=== PATIENT | female | born 2000 | race Caucasian/White ===

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

== ENCOUNTER 2019-01-28 18:58 | Emergency (ER) | payer SELFPAY ==
--- NOTE | 2019-01-28 20:19 | ER Document Report ---
ED Medical Screen (RME) - General Chief Complaint: Vaginal Bleeding Stated Complaint: VAGINAL BLEEDING/ Time Seen by Provider: 01/28/19 20:11 Mode of Arrival: Ambulatory Information source: Patient Notes: 18-year-old female presented to ED for complaint of lower abdominal pain that started yesterday. She states her menstrual cycle started yesterday it was not due to the 13th of 14th and she never has appeared to start early there usually late. She states she filled a super tampon in less than an hour and then this when she is having a little more than an hour and is not full yet. She states she is very concerned because she is never had any bleeding like this. She states only medical history she has is they had to remove her gallbladder and when she was born there was no opening from her urethra to the outside and they had to make an opening. She states that he smokes a pack a day drinks on the weekends and lives with her family. She states no other medical history. I have greeted and performed a rapid initial assessment of this patient. A comprehensive ED assessment and evaluation of the patient, analysis of test results and completion of medical decision making process will be conducted by an additional ED providers. Dictation of this chart was performed using voice recognition software; therefore, there may be some unintended grammatical errors. TRAVEL OUTSIDE OF THE [place] IN LAST 30 DAYS: No - Related Data Allergies/Adverse Reactions: No Known Allergies Allergy (Verified 01/28/19 18:59) Past Medical History Renal/ Medical History: Denies: Hx Peritoneal Dialysis Psychiatric Medical History: Reports: Hx Attention Deficit Hyperactivity Disorder, Hx Bipolar Disorder Past Surgical History: Reports: Hx Gynecologic Surgery - surgery to "open her up", Hx Urinary Tract Surgery - urethra stricture - Immunizations Immunizations up to date: Yes Hx Diphtheria, Pertussis, Tetanus Vaccination: Yes Physical Exam - Vital signs Vitals: Temp Pulse Resp BP Pulse Ox 99.1 F 92 H 18 105/64 100 01/28/19 19:10 01/28/19 19:10 01/28/19 19:10 01/28/19 19:10 01/28/19 19:10 Course - Vital Signs Vital signs: Temp Pulse Resp BP Pulse Ox 99.1 F 92 H 18 105/64 100 01/28/19 19:10 01/28/19 19:10 01/28/19 19:10 01/28/19 19:10 01/28/19 19:10
[2019-01-28 20:42] LABS: ABSOLUTE EOSINOPHILS # (AUTO) 0.1 10^3/uL (0.0-0.6); ABSOLUTE LYMPHOCYTES (AUTO) 1.6 10^3/uL (0.5-4.7); ABSOLUTE MONOCYTES (AUTO) 0.5 10^3/uL (0.1-1.4); ABSOLUTE NEUT (AUTO) 4.5 10^3/uL (1.7-8.2); BASOPHILS % (AUTO) 0.5 % (0-2); HEMATOCRIT 42.3 % (36.0-47.0); HEMOGLOBIN 14.2 g/dL (12.0-15.5); LYMPHOCYTES % (AUTO) 23.9 % (13-45); MEAN CORPUSCULAR HEMOGLOBIN 29.9 pg (27.0-33.4); MEAN CORPUSCULAR HGB CONC 33.7 g/dL (32.0-36.0); MEAN CORPUSCULAR VOLUME 89 fl (80-97); MONOCYTES % (AUTO) 7.1 % (3-13); PLATELET COUNT 185 10^3/uL (150-450); RED BLOOD COUNT 4.77 10^6/uL (3.72-5.28); RED CELL DISTRIBUTION WIDTH 13.3 % (11.5-14.0); SEGMENTED NEUTROPHILS % (AUTO) 67.5 % (42-78); TOTAL CELLS COUNTED % (AUTO) 100 %; WHITE BLOOD COUNT 6.7 10^3/uL (4.0-10.5)
[2019-01-28 20:53] LABS: APPEARANCE,URINE CLOUDY; BILIRUBIN,URINE NEGATIVE (NEGATIVE); COLOR,URINE YELLOW; GLUCOSE, URINE NEGATIVE (NEGATIVE); KETONES,URINE TRACE mg/dL (NEGATIVE); LEUKOCYTE ESTERASE,URINE TRACE (NEGATIVE); NITRITE,URINE NEGATIVE (NEGATIVE); PROTEIN,URINE 30 mg/dL (NEGATIVE); URINE SPECIFIC GRAVITY 1.031
[2019-01-28 21:00] LABS: ALBUMIN 4.5 g/dL (3.7-5.6); ALKALINE PHOSPHATASE 85 U/L (50-135); ANION GAP 5 (5-19); ASPARTATE AMINO TRANSFERASE 22 U/L (5-30); BILIRUBIN,DIRECT 0.2 mg/dL (0.0-0.4); BILIRUBIN,TOTAL 0.4 mg/dL (0.2-1.3); BLOOD UREA NITROGEN 13 mg/dL (7-20); CALCIUM 9.3 mg/dL (8.4-10.2); CARBON DIOXIDE 29 mmol/L (22-30); CHLORIDE 108 mmol/L (98-107); GLUCOSE 89 mg/dL (75-110); POTASSIUM 4.2 mmol/L (3.6-5.0)
[2019-01-28 21:09] LABS: ADD MANUAL MICROSCOPIC YES
[2019-01-28 21:10] LABS: BACTERIA,URINE TRACE /HPF
[2019-01-28] MEDS ORDERED: NORMAL SALINE 1000 ML 1,000 ML IV ONE (23:41)
[2019-01-28] MEDS ORDERED: ONDANSETRON HCL INJ/PF 4 MG/2 ML SDV IV ONE (23:41)
[2019-01-28] MEDS ORDERED: KETOROLAC TROMETHAMINE INJ/PF 30 MG/1 ML SDV IV ONE (23:41)
--- NOTE | 2019-01-28 23:44 | ER Document Report ---
ED GI/ - General Chief Complaint: Vaginal Bleeding Stated Complaint: VAGINAL BLEEDING/ Time Seen by Provider: 01/28/19 20:11 Primary Care Provider: [facility] [Provider Group] - Follow up as needed Mode of Arrival: Ambulatory Notes: Patient is a 18-year-old female that comes emergency department for chief complaint of lower abdominal and pelvic pain that is very sharp, on both lower sides, and she has very heavy vaginal bleeding. She states she is soaking through pads very quickly (reported filled a super tampon in less than an hour), she states she is concerned she is either or bleeding or has a very out of the ordinary menstrual cycle. She denies fever/chills. She reports nausea but she denies vomiting. She states her last menstrual cycles 1 month ago. She is sexually active. She denies vaginal discharge or dysuria. She reports bilateral lower flank pain intermittently. She has a had a cholecystectomy, as a baby they made her urethra because she did not have an opening, she smokes, no other medical history reported. TRAVEL OUTSIDE OF THE [place] IN LAST 30 DAYS: No - Related Data Allergies/Adverse Reactions: No Known Allergies Allergy (Verified 01/28/19 18:59) Past Medical History - General Information source: Patient - Social History Smoking Status: Never Smoker Drug Abuse: None Lives with: Family Family History: Reviewed & Not Pertinent Renal/ Medical History: Denies: Hx Peritoneal Dialysis Psychiatric Medical History: Reports: Hx Attention Deficit Hyperactivity Disorder, Hx Bipolar Disorder Past Surgical History: Reports: Hx Gynecologic Surgery - surgery to "open her up", Hx Urinary Tract Surgery - urethra stricture - Immunizations Immunizations up to date: Yes Hx Diphtheria, Pertussis, Tetanus Vaccination: Yes Review of Systems - Review of Systems Constitutional: No symptoms reported EENT: No symptoms reported Cardiovascular: No symptoms reported Respiratory: No symptoms reported Gastrointestinal: See HPI Genitourinary: See HPI Female Genitourinary: See HPI Musculoskeletal: No symptoms reported Skin: No symptoms reported Hematologic/Lymphatic: No symptoms reported Neurological/Psychological: No symptoms reported Physical Exam - Vital signs Vitals: Temp Pulse Resp BP Pulse Ox 99.1 F 92 H 18 105/64 100 01/28/19 19:10 01/28/19 19:10 01/28/19 19:10 01/28/19 19:10 08/08/19 19:10 - Notes Notes: GENERAL: Alert, interacts well. No acute distress. HEAD: Normocephalic, atraumatic. EYES: Pupils equal, round, and reactive to light. Extraocular movements intact. ENT: Oral mucosa moist, tongue midline. Oropharynx unremarkable. Airway patent. LUNGS: Clear to auscultation bilaterally, no wheezes, rales, or rhonchi. No respiratory distress. HEART: Regular rate and rhythm. No murmur ABDOMEN: There is some tenderness on both sides of the lower abdominal/pelvic areas. No guarding. No rebound tenderness. No rigidity. GENITOURINARY: There is scant amount of vaginal bleeding, no heavy bleeding noted, no discharge, no cervical motion tenderness, no lesions, no concerning findings. Exam performed with Vanda BEAUCHAMP at bedside. EXTREMITIES: Moves all 4 extremities spontaneously. No edema, normal radial and dorsalis pedis pulses bilaterally. No cyanosis. BACK: no cervical, thoracic, lumbar midline tenderness. No saddle anesthesia, normal distal neurovascular exam. Moves all extremities in full range of motion. NEUROLOGICAL: Alert and oriented x3. Normal speech. Cranial nerves II through XII grossly intact. PSYCH: Normal affect, normal mood. SKIN: Warm, dry, normal turgor. No rashes or lesions noted. Course - Re-evaluation Re-evalutation: Urine shows elevated specific gravity, otherwise unremarkable. CBC unremarkable without anemia, I did discuss this with patient in detail on her request. Ch emistry unremarkable, test negative. Pelvic examination without concerning findings, wet mount and gonorrhea/B are negative. Ultrasound without concerning finding. I do not have an exact cause of patient's worst pain and worse bleeding than usual. Most likely hormonal. Discussed with patient. She is much better after Toradol, provided with this at home, discussed GENERATOR TECHNICIAN follow-up and return precautions. Patient states understanding and agreement. - Vital Signs Vital signs: Temp Pulse Resp BP Pulse Ox 98.9 F 90 17 110/71 99 01/29/19 02:25 01/29/19 02:25 01/29/19 02:25 01/29/19 02:25 01/29/19 02:25 - Laboratory Result Diagrams: 01/28/19 20:32 01/28/19 20:32 Laboratory results interpreted by me: 01/28/19 01/28/19 20:32 20:32 Chloride 108 H Urine Protein 30 H Urine Ketones TRACE H Urine Urobilinogen 2.0 H Ur Leukocyte Esterase TRACE H Discharge - Discharge Clinical Impression: Dysfunctional uterine bleeding, Pelvic pain, Dehydration Condition: Stable Disposition: HOME, SELF-CARE Additional Instructions: Your ultrasound, laboratory work-up, and evaluation are reassuring. You have been treated for dehydration. Take the Toradol if needed for pain/cramping. Follow-up with GENERATOR TECHNICIAN for additional evaluation and management. See listed referral. Your hemoglobin is 14.2 (this is in the normal range, you are not anemic at this time). Return for any concerning symptoms including very heavy bleeding dizziness or passing out, severe worsening pain, fever/chills, vomiting, or any other concerning symptoms. Prescriptions: Ketorolac Tromethamine [Toradol 10 mg Tablet] 10 mg PO Q8HP PRN #24 tablet PRN Reason: Referrals: [facility] [Provider Group] - Follow up as needed
--- NOTE | 2019-01-29 01:05 | RADIOLOGY REPORT (SQ) ---
CLINICAL HISTORY: sharp pelvic pain with bleeding, nausea COMPARISON: None. TECHNIQUE: US PELVIS TRANSVAGINAL on 01/28/2019 11:42 PM CDT FINDINGS: Uterus measures 6.4 cm. Endometrium measures 4 mm. Right ovary is not seen. Left ovary measures 3.7 x 1.9 x 1.8 cm with patent flow. IMPRESSION: Unremarkable study. Right ovary not visualized.
[2019-01-29 01:06] LABS: T.VAGINALIS (WET MOUNT) NO TRICHOMONAS SEEN; WBCS (WET MOUNT) FEW WBCS SEEN; YEAST (WET MOUNT) NO YEAST SEEN
[2019-01-29 01:07] LABS: RBCS (WET MOUNT) 4+ RBCS SEEN
[2019-01-29 02:33] LABS: CHLAM PCR NOT DETECTED (NOT DETECT)
[2019-01-29 02:39] VITALS: BP 110/71
== END 2019-01-29 02:25 | disposition home or self-care (01) ==
LOC: ER 18:58
DX: N93.8 Other specified abnormal uterine and vaginal bleeding (principal); E86.0 Dehydration; R10.2 Pelvic and perineal pain; R10.30 Lower abdominal pain, unspecified; F17.200 Nicotine dependence, unspecified, uncomplicated
CPT/HCPCS: 99284; 96361; 96374; 96375; 36415; 87086; 87210; 84702; 85025; 80053; 81001; 87491; 87591; 76830; 93976; J1885; J2405; J7030

== ENCOUNTER 2019-03-27 14:10 | Emergency (ER) | payer SELFPAY ==
[2019-03-27 14:15] VITALS: BP 142/80
--- NOTE | 2019-03-27 14:33 | ER Document Report ---
ED Medical Screen (RME) - General Chief Complaint: Foreign Body in Vagina Stated Complaint: POSSIBLE PIECE TAMPON STUCK IN VAGINA Time Seen by Provider: 03/27/19 14:28 Mode of Arrival: Ambulatory Information source: Patient Notes: 18-year-old female presents to ED for complaint of part of her tampon being still in her vagina. She states she pulled the string on the tampon and part of the tampon stayed in her vagina. She states that every time her. Is over she goes to the [facility] and is frequently diagnosed with bacterial vaginosis. She states she is only used one time but she does not douche frequently. Patient is alert oriented respirations regular and unlabored speaking in full sentences walks with even steady gait. She states she does smoke a pack a day drinks weekly does not drug I have greeted and performed a rapid initial assessment of this patient. A comprehensive ED assessment and evaluation of the patient, analysis of test results and completion of medical decision making process will be conducted by an additional ED providers. TRAVEL OUTSIDE OF THE [place] IN LAST 30 DAYS: No - Related Data Allergies/Adverse Reactions: No Known Allergies Allergy (Verified 01/28/19 18:59) Past Medical History Renal/ Medical History: Denies: Hx Peritoneal Dialysis Psychiatric Medical History: Reports: Hx Attention Deficit Hyperactivity Disorder, Hx Bipolar Disorder Past Surgical History: Reports: Hx Cholecystectomy, Hx Gynecologic Surgery - surgery to "open her up", Hx Urinary Tract Surgery - urethra stricture - Immunizations Immunizations up to date: Yes Hx Diphtheria, Pertussis, Tetanus Vaccination: Yes Physical Exam - Vital signs Vitals: Temp Pulse Resp BP Pulse Ox 98.6 F 92 H 20 142/80 H 98 03/27/19 14:13 03/27/19 14:13 03/27/19 14:13 03/27/19 14:13 03/27/19 14:13 Course - Vital Signs Vital signs: Temp Pulse Resp BP Pulse Ox 98.6 F 92 H 20 142/80 H 98 03/27/19 14:13 03/27/19 14:13 03/27/19 14:13 03/27/19 14:13 03/27/19 14:13
--- NOTE | 2019-03-27 14:56 | ER Document Report ---
HPI - HPI Time Seen by Provider: 03/27/19 14:28 Pain Level: Denies Notes: Patient is an otherwise healthy 18-year-old female presenting to the emergency department was concerned that she has a tampon stuck inside of her vagina. She states that when she went to pull her tampon out the string broke. She states she obtained 2 large pieces of cotton but is unsure if there may be more in there. Patient reports the tampon was first inserted last night. She denies any other symptoms. - REPRODUCTIVE LMP: 03-27-19 Reproductive: DENIES: : Past Medical History - General Information source: Patient - Social History Smoking Status: Never Smoker Frequency of alcohol use: None Drug Abuse: None Family History: Reviewed & Not Pertinent Patient has suicidal ideation: No Patient has homicidal ideation: No Renal/ Medical History: Denies: Hx Peritoneal Dialysis Psychiatric Medical History: Reports: Hx Attention Deficit Hyperactivity Disorder, Hx Bipolar Disorder Past Surgical History: Reports: Hx Cholecystectomy, Hx Gynecologic Surgery - surgery to "open her up", Hx Urinary Tract Surgery - urethra stricture - Immunizations Immunizations up to date: Yes Hx Diphtheria, Pertussis, Tetanus Vaccination: Yes Vertical Provider Document - CONSTITUTIONAL Notes: PHYSICAL EXAMINATION: GENERAL: Well-appearing, well-nourished and in no acute distress. HEAD: Atraumatic, normocephalic. EYES: Pupils equal round extraocular movements intact, conjunctiva are normal. ENT: Nares patent NECK: Normal range of motion LUNGS: No respiratory distress Musculoskeletal: Normal range of motion Female : Normal external genitalia, no evidence of retained foreign body on speculum exam. NEUROLOGICAL: Normal speech, normal gait. PSYCH: Normal mood, normal affect. SKIN: Warm, Dry, normal turgor, no rashes or lesions noted. - INFECTION CONTROL TRAVEL OUTSIDE OF THE [place] IN LAST 30 DAYS: No Course - Re-evaluation Re-evalutation: No retained foreign body noted on vaginal exam. Patient will be discharged home in stable condition. Discussed ED return precautions. - Vital Signs Vital signs: Temp Pulse Resp BP Pulse Ox 98.6 F 92 H 20 142/80 H 98 03/27/19 14:13 03/27/19 14:13 03/27/19 14:13 03/27/19 14:13 03/27/19 14:13 Discharge - Discharge Clinical Impression: Concern for retained foreign body in vag Condition: Stable Disposition: HOME, SELF-CARE Additional Instructions: Fortunately no retained tampon was found during our examination today. You may want to try taking a probiotic or eating some yogurt around the time of your. Since you have stated you get recurrent BV after your period. Follow-up with your primary care provider with any new or worsening concerns. Return to the emergency department as needed.
== END 2019-03-27 15:04 | disposition home or self-care (01) ==
LOC: ER 14:10
DX: Z03.89 Encounter for observation for other suspected diseases and conditions ruled out (principal)
CPT/HCPCS: 99283

== ENCOUNTER 2019-04-12 17:18 | Emergency (ER) | payer SELFPAY ==
[2019-04-12 17:37] VITALS: BP 137/77
--- NOTE | 2019-04-12 17:40 | ER Document Report ---
ED Medical Screen (RME) - General Chief Complaint: Flank Pain Stated Complaint: FLANK PAIN Time Seen by Provider: 04/12/19 17:37 Mode of Arrival: Ambulatory Information source: Patient Notes: 18-year-old female with presents to ED for complaint of low back pain. This started today. She states she had burning frequency and pressure with urination for 3 days. She denies any nausea vomiting last menstrual cycle was March 25, 2019. She has had UTIs in the past but not recently. She states she has had unprotected sex. She states she does have some pelvic pain also. Patient is alert oriented respirations regular and unlabored speaking in full sentences. I have greeted and performed a rapid initial assessment of this patient. A comprehensive ED assessment and evaluation of the patient, analysis of test results and completion of medical decision making process will be conducted by an additional ED providers. TRAVEL OUTSIDE OF THE [place] IN LAST 30 DAYS: No - Related Data Allergies/Adverse Reactions: No Known Allergies Allergy (Verified 01/28/19 18:59) Past Medical History Renal/ Medical History: Denies: Hx Peritoneal Dialysis Psychiatric Medical History: Reports: Hx Attention Deficit Hyperactivity Disorder, Hx Bipolar Disorder Past Surgical History: Reports: Hx Cholecystectomy, Hx Gynecologic Surgery - surgery to "open her up", Hx Urinary Tract Surgery - urethra stricture - Immunizations Immunizations up to date: Yes Hx Diphtheria, Pertussis, Tetanus Vaccination: Yes Physical Exam - Vital signs Vitals: Temp Pulse Resp BP Pulse Ox 98.5 F 98 H 18 137/77 H 97 04/12/19 17:35 04/12/19 17:35 04/12/19 17:35 04/12/19 17:35 04/12/19 17:35 Course - Vital Signs Vital signs: Temp Pulse Resp BP Pulse Ox 98.5 F 98 H 18 137/77 H 97 04/12/19 17:35 04/12/19 17:35 04/12/19 17:35 04/12/19 17:35 04/12/19 17:35
[2019-04-12] MEDS ORDERED: ACETAMINOPHEN 325 MG TABLET PO ONE (17:41)
[2019-04-12 18:04] LABS: ABSOLUTE EOSINOPHILS # (AUTO) 0.1 10^3/uL (0.0-0.6); ABSOLUTE LYMPHOCYTES (AUTO) 1.5 10^3/uL (0.5-4.7); ABSOLUTE MONOCYTES (AUTO) 0.8 10^3/uL (0.1-1.4); ABSOLUTE NEUT (AUTO) 8.6 10^3/uL (1.7-8.2); BASOPHILS % (AUTO) 0.2 % (0-2); EOSINOPHILS % (AUTO) 0.7 % (0-6); HEMATOCRIT 43.8 % (36.0-47.0); HEMOGLOBIN 14.6 g/dL (12.0-15.5); LYMPHOCYTES % (AUTO) 13.5 % (13-45); MEAN CORPUSCULAR HEMOGLOBIN 29.3 pg (27.0-33.4); MEAN CORPUSCULAR HGB CONC 33.5 g/dL (32.0-36.0); MEAN CORPUSCULAR VOLUME 88 fl (80-97); MONOCYTES % (AUTO) 7.3 % (3-13); PLATELET COUNT 182 10^3/uL (150-450); RED CELL DISTRIBUTION WIDTH 13.2 % (11.5-14.0); SEGMENTED NEUTROPHILS % (AUTO) 78.3 % (42-78); TOTAL CELLS COUNTED % (AUTO) 100 %
[2019-04-12 18:23] LABS: ALBUMIN 4.2 g/dL (3.7-5.6); ALKALINE PHOSPHATASE 79 U/L (50-135); ANION GAP 9 (5-19); ASPARTATE AMINO TRANSFERASE 19 U/L (5-30); BILIRUBIN,DIRECT 0.1 mg/dL (0.0-0.4); BILIRUBIN,TOTAL 0.6 mg/dL (0.2-1.3); BLOOD UREA NITROGEN 14 mg/dL (7-20); CALCIUM 9.4 mg/dL (8.4-10.2); CARBON DIOXIDE 27 mmol/L (22-30); CHLORIDE 107 mmol/L (98-107); GLUCOSE 92 mg/dL (75-110); POTASSIUM 4.5 mmol/L (3.6-5.0); TOTAL PROTEIN 7.1 g/dL (6.3-8.2)
[2019-04-12 18:58] LABS: APPEARANCE,URINE TURBID; BILIRUBIN,URINE NEGATIVE (NEGATIVE); COLOR,URINE YELLOW; GLUCOSE, URINE NEGATIVE (NEGATIVE); KETONES,URINE NEGATIVE (NEGATIVE); PROTEIN,URINE 100 mg/dL (NEGATIVE); URINE SPECIFIC GRAVITY 1.018; UROBILINOGEN,URINE NEGATIVE mg/dL (<2.0)
[2019-04-12] MEDS ORDERED: AZITHROMYCIN 250 MG TABLET PO ONE (19:04)
[2019-04-12] MEDS ORDERED: CEFTRIAXONE INJ 250 MG VIAL IM ONE (19:04)
[2019-04-12] MEDS ORDERED: LIDOCAINE 1% INJ-PF (10 MG/ML) 30 ML SDV INJ ONE (19:04)
--- NOTE | 2019-04-12 19:10 | ER Document Report ---
ED General - General Chief Complaint: Flank Pain Stated Complaint: FLANK PAIN Time Seen by Provider: 04/12/19 17:37 Mode of Arrival: Ambulatory TRAVEL OUTSIDE OF THE [place] IN LAST 30 DAYS: No - HPI Notes: Patient is a 18-year-old female no significant past medical history aside from cholecystectomy and previous chlamydial infection who presents complaining of urinary burning, urgency, frequency, suprapubic pressure, vaginal odor/discharge that began over the past week. Patient states that she is able to eat and drink without difficulty. She is having normal bowel movements. Denies drug allergies. Patient states that she does have some lower back soreness that started yesterday without injury. Pain does not radiate. No other concerns or complaints. Denies any headache, fever, neck pain, URI, sore throat, chest pain, palpitations, syncope, cough, shortness of breath, wheeze, dyspnea, nausea/vomiting/diarrhea, loss of control of bowel or bladder, numbness/tinglin g, saddle anesthesia, muscle paralysis/weakness, or rash. - Related Data Allergies/Adverse Reactions: No Known Allergies Allergy (Verified 01/28/19 18:59) Home Medications: folic acid Past Medical History - General Information source: Patient - Social History Smoking Status: Current Every Day Smoker Frequency of alcohol use: Social Family History: Reviewed & Not Pertinent Patient has suicidal ideation: No Patient has homicidal ideation: No Renal/ Medical History: Denies: Hx Peritoneal Dialysis Psychiatric Medical History: Reports: Hx Attention Deficit Hyperactivity Disorder, Hx Bipolar Disorder Past Surgical History: Reports: Hx Cholecystectomy, Hx Gynecologic Surgery - surgery to "open her up", Hx Urinary Tract Surgery - urethra stricture - Immunizations Immunizations up to date: Yes Hx Diphtheria, Pertussis, Tetanus Vaccination: Yes Review of Systems - Review of Systems -: Yes All other systems reviewed and negative Physical Exam - Vital signs Vitals: Temp Pulse Resp BP Pulse Ox 98.5 F 98 H 18 137/77 H 97 04/12/19 17:35 04/12/19 17:35 04/12/19 17:35 04/12/19 17:35 04/12/19 17:35 - Notes Notes: PHYSICAL EXAMINATION: GENERAL: Well-appearing, well-nourished and in no acute distress. HEAD: Atraumatic, normocephalic. EYES: Pupils equal round and reactive to light, extraocular movements intact, conjunctiva are normal. ENT: Nares patent, oropharynx clear without exudates. Moist mucous membranes. NECK: Normal range of motion, supple without lymphadenopathy LUNGS: Breath sounds clear to auscultation bilaterally and equal. No wheezes rales or rhonchi. HEART: Regular rate and rhythm without murmurs ABDOMEN: Soft, nondistended abdomen. No guarding, no rebound. Normal bowel sounds present. CVA tenderness negative bilaterally. + mild suprapubic tende rness. Female : No inguinal adenopathy. External genitalia without erythema, lesions, or masses. Vaginal mucosa pink with scant white discharge. Cervix parous, pink, and without discharge. Uterus is smooth. No adnexal tenderness. No CMT. Accompanied by female RNRoxana. Musculoskeletal: FROM to passive/active. Strength 5+/5. Extremities: No cyanosis/clubbing/edema b/l. Peripheral pulses 2+. Capillary refill less than 3 seconds. NEUROLOGICAL: Normal speech, normal gait. PSYCH: Normal mood, normal affect. SKIN: Warm, Dry, normal turgor, no rashes or lesions noted. Course - Re-evaluation Re-evalutation: 04/12/19 20:21 Patient is an afebrile, well-hydrated, 18-year-old female who presents to the ED with acute UTI and BV. Vitals are acceptable without any significant tachycardia, tachypnea, or hypoxia. PE is otherwise unremarkable. See labs, UC pending. See wet mount results. Chlam/gonorrhea tests are pending. Pt received zithromax/rocephin. Patient is nontoxic-appearing is tolerating p.o. without any difficulties. No other labs or imaging warranted at this time based on H&P. Low suspicion/risk for acute appendicitis, bowel obstruction, acute cholecystitis, acute cholangitis, perforated diverticulitis, incarcerated hernia, pancreatitis, perforated ulcer, peritonitis, sepsis, pelvic inflammatory disease, ectopic , tubo-ovarian abscess, ovarian torsion, or other systemic emergent condition at this time. Patient is aware that her condition can change from initial presentation and she needs to monitor symptoms closely and seek medical attention if any acute changes. I will send her home with prescription for keflex/diflucan/Flagyl. Conservative measures otherwise for symptoms. Recheck with your PCM/OBGYN in 3-5 days. Return to the ED with any worsening/concerning symptoms otherwise as reviewed in discharge. Patient is in agreement. - Vital Signs Vital signs: Temp Pulse Resp BP Pulse Ox 98.5 F 98 H 18 137/77 H 97 04/12/19 17:35 04/12/19 17:35 04/12/19 17:35 04/12/19 17:35 04/12/19 17:35 - Laboratory Result Diagrams: 04/12/19 17:57 04/12/19 17:57 Laboratory results interpreted by me: 04/12/19 04/12/19 17:22 17:57 WBC 11.0 H Absolute Neuts (auto) 8.6 H Seg Neutrophils % 78.3 H Urine Protein 100 H Urine Blood MODERATE H Leukocyte Esterase Rfl LARGE H Procedures - Pelvic Exam Pelvic exam Cultures obtained: Yes Wet prep obtained: Yes Bimanual exam performed: Yes - neg Witnessed by: zheng Schmidtrabble furnace tender - Discharge Clinical Impression: Acute UTI (urinary tract infection) Condition: Stable Disposition: HOME, SELF-CARE Instructions: Cephalexin ([facility]), Urinary Tract Infection ([facility]), Metronidazole ([facility]) Additional Instructions: Maintain fluid intake Proper hygienic technique Keep the skin clean Safe sexual practices with condoms everytime Tylenol/ibuprofen as needed Check in with the health department this week for further testing if warranted Your chlamydia/gonorrhea tests are pending and you will be notified if positive results; you may call in 1 day for the results as well F/u with your PCM/OBGYN in 3-5 days for a recheck Return to the ED with any development of LE/fever, trouble with vision, eye redness, worsening pain, urethral discharge, urinary retention, blood in the urine, flank pain, abdominal pain, n/v, Chest Pain, shortness of breath, joint pains, trouble breathing, or any other worsening/concerning symptoms as needed otherwise. Prescriptions: Fluconazole [Diflucan] 150 mg PO ONCE PRN #1 tablet PRN Reason: Metronidazole [Flagyl] 500 mg PO BID #14 tablet Cephalexin Monohydrate [Keflex 500 mg Capsule] 500 mg PO TID #21 capsule Forms: Elevated Blood Pressure, Smoking Cessation Education Referrals: [facility] [Provider Group] - Follow up as needed
[2019-04-12 19:52] LABS: BACTERIA (WET MOUNT) 4+ BACTERIA SEEN; EPITHELIALS (WET MOUNT) 4+ EPITHELIALS SEEN; T.VAGINALIS (WET MOUNT) COULD NOT PERFORM; WBCS (WET MOUNT) 2+ WBCS SEEN; YEAST (WET MOUNT) NO YEAST SEEN
[2019-04-12 19:53] LABS: RBCS (WET MOUNT) NO RBCS SEEN
[2019-04-12 21:16] LABS: CHLAM PCR NOT DETECTED (NOT DETECT)
== END 2019-04-12 20:34 | disposition home or self-care (01) ==
LOC: ER 17:18
DX: N39.0 Urinary tract infection, site not specified (principal); N89.8 Other specified noninflammatory disorders of vagina; R35.0 Frequency of micturition; R39.15 Urgency of urination; Z90.49 Acquired absence of other specified parts of digestive tract
CPT/HCPCS: 36415; 87086; 87210; 84703; 85025; 80053; 81001; 87491; 87591; J0696; 87088; 87186; 96372; 99284

== ENCOUNTER → 2020-03-11 | Outpatient (CLI) | payer MEDICAID ==
[2020-03-11 12:32] VITALS: BP 108/53
--- NOTE | 2020-03-11 12:32 | ER RDC ASSESSMENT REPORT ---
Intake - In the Last 14 days Have you traveled outside [place]?: No Have you been in close contact with someone CONFIRMED: No Worked in Healthcare?: No - Symptoms Subjective Fever(Hallam feverish): No Chills: No Muscule Aches: No Runny Nose: No Sore Throat: Yes Cough (New or worsening chronic cough): Yes Shortness of breath: No Nausea or Vomiting: No Headache: Yes Abdominal Pain: No Diarrhea(3 or more loose stools in last 24 hours): No - Do you have any of the following Chronic lung disease: Asthma or emphysema or COPD: Yes Chronic Lung Disease Comment: Asthma Cystic Fibrosis: No Diabetes: No High Blood Pressure: No Cardiovascular Disease: No Chronic Kidney Disease: No Chronic Liver Disease: No Chronic blood disorder like Sickle Cell Disease: No Weak immune system due to disease or medication: No Neurologic condition that limits movement: No Developmental delay - Moderate to Severe: No Recent (within past 2 weeks) or current : No Morbid Obesity (>100 pounds over ideal weight): No - Objective Temperature: 97 F Pulse Rate: 82 Respiratory Rate: 16 Blood Pressure: 108/53 O2 Sat by Pulse Oximetry: 98 Objective: Patient is a well-appearing 19-year-old female, who presents today for COVID-19 screening. Disposition: Home; Selfcare General - General Stated Complaint: Upper respiratory symptoms Mode of Arrival: Ambulatory Information source: Patient Notes: The patient was evaluated during the global COVID-19 pandemic. That diagnosis was suspected/considered upon initial presentation. Their evaluation, treatment, and testing was consistent with current guidelines for patients who present with complaints or symptoms that may be related to COVID-19. - HPI Patient complains to provider of: Upper respiratory symptoms Onset: Last week Onset/Duration: Constant, Persistent Quality of pain: No pain Severity: None Pain Level: Denies Associated symptoms: Nonproductive cough, Headache, Sore throat Exacerbated by: Denies Relieved by: Denies Similar symptoms previously: No Recently seen / treated by doctor: No - Related Data Allergies/Adverse Reactions: No Known Allergies Allergy (Verified 01/28/19 18:59) Past Medical History - Social History Smoking Status: Current Every Day Smoker Cigarette use (# per day): Yes - Half pack per day Chew tobacco use (# tins/day): No Smoking Education Provided: Yes Frequency of alcohol use: Occasional Drug Abuse: None Occupation: Unemployed Lives with: Family Family History: Reviewed & Not Pertinent Patient has suicidal ideation: No Patient has homicidal ideation: No Renal/ Medical History: Denies: Hx Peritoneal Dialysis Psychiatric Medical History: Reports: Hx Attention Deficit Hyperactivity Disorder, Hx Bipolar Disorder Past Surgical History: Reports: Hx Cholecystectomy, Hx Gynecologic Surgery - surgery to "open her up", Hx Urinary Tract Surgery - urethra stricture Physical Exam - General General appearance: Appears well In distress: None Notes: PHYSICAL EXAMINATION: GENERAL: Well-appearing and in no acute distress. HEAD: Atraumatic, normocephalic. EYES: sclera anicteric, conjunctiva are normal. ENT: nares patent. Moist mucous membranes. NECK: Normal range of motion, supple without lymphadenopathy. LUNGS: CTAB and equal. No wheezes rales or rhonchi. HEART: Regular rate and rhythm without murmurs. EXTREMITIES: Normal range of motion, no pitting edema. No cyanosis. BACK: No midline or CVA tenderness. NEUROLOGICAL: Cranial nerves grossly intact. Normal speech. Normal gait. PSYCH: Normal mood, normal affect. SKIN: Warm, Dry, normal color and turgor, no obvious lesions or rash noted. Diagnostic Results Laboratory Results: Patient advised at this time they are considered a Person Under Investigation (PUI) for the COVID-19 Coronavirus. They have been made aware it is currently taking 5-7 days to receive their results, and The [facility] Department will call to advise them of a POSITIVE result, and an [facility] steam presser will call to advise of a NEGATIVE result. Patient Education/Counseling Counseling/Education: Patient presents with upper respiratory symptoms worrisome for possible COVID- 19. Patient does not have symptoms worrisome as an emergency such as difficulty breathing, shortness of breath, chest pain, pressure, confusion or cyanosis. Patient appears suitable for discharge. Patient's vital signs are stable and patient is nontoxic in appearance. Good return precautions have been discussed with patient, patient verbalized understanding and is agreeable with discharge plan of care at this time. Patient provided COVID-19 discharge instructions to include: As a person under investigation for COVID-19, the [facility] of Health and Human Services, division of public health advises you to adhere to the following guidance until your test results are reported to you. If your test result is positive, you will receive additional information from your provider and your local health department at that time. Remain at home until you are cleared by the health provider or public health authorities. Keep a log of visitors to your home, notify any visitors to your home of your isolation status. If you plan to move to a new address or leave the county, notify the local health department in your County. Call your doctor or seek care if you have an urgent medical need. Before seeki ng medical care, call ahead to get instructions from the provider before arriving at the medical office clinic or hospital. Notify them that you are being tested for the virus that causes COVID-19 so that arrangements can be made, as necessary, to prevent transmission to others in the healthcare setting. Next, notify the local health department in your county. If a medical emergency arises and you need to call 911, inform dispatch and the first responders that you are being tested for the virus that causes COVID-19. Next, notify the local health department in your county. Patient provided education on smoking cessation and the harmful effects of smoking, especially in the presence of Co-morbid conditions such as Hypertension, Diabetes, and/or other chronic illnesses. Patient verbalized understanding of smoking cessation education, and the increased health benefits of quitting. Guidance for worsening S/SX: For worsening symptoms, patient has been advised to contact their Primary Care Provider, or go to the nearest Emergency Department. RDC Discharge - Discharge Clinical Impression: COVID-19 Screening URI (upper respiratory infection) Qualifiers: URI type: unspecified URI Qualified Code(s): J06.9 - Acute upper respiratory infection, unspecified Condition: Stable Disposition: Home; Selfcare
== END ==
LOC: RDC 11:02
PROVIDERS: ATTEND Nurse Practitioner Family
DX: Z20.828 Contact with and (suspected) exposure to other viral communicable diseases (principal)
CPT/HCPCS: 87635; C9803; 99201; 99211